=== PATIENT | female | born 1965 ===

== ENCOUNTER 2023-08-23 17:45 | Emergency (ER) | payer BC ==
[~2023-08-23] VITALS: Ht 170.2 cm; Wt 104.5 kg
[2023-08-23 18:56] LABS: COLLECTION METHOD CLEAN CATCH
[2023-08-23 19:00] LABS: BASO # 0.1 K/mm3 (0.0-0.2); EOS # 0.3 K/mm3 (0.0-0.7); EOS % 4.7 % (0.0-4.0); GRAN # 3.1 K/mm3 (1.4-6.5); GRAN % 51.5 % (42.2-75.2); HEMOGLOBIN 10.4 g/dl (12.5-16.0); LYMPH % 33.6 % (20.0-51.0); MEAN CELL VOLUME 89 fl (80.0-100.0); MEAN CORPUSCULAR HEMOGLOBIN 30 pg (27-31); MEAN CORPUSCULAR HGB CONC 33 g/dl (33.0-37.0); MEAN PLATELET VOLUME 10.9 fl (7.4-10.4); MONO # 0.5 K/mm3 (0.1-0.6); MONO % 8.7 % (1.7-9.3); PLATELET COUNT 269 K/mm3 (130-400); RED BLOOD COUNT 3.49 M/mm3 (4.10-5.30); REDCELL DISTRIBUTION WIDTH-CV 12.8 % (11.5-14.5)
[2023-08-23 19:01] LABS: HEMATOCRIT 31.2 % (37.0-47.0)
[2023-08-23 19:09] LABS: URINE APPEARANCE Hazy (CLEAR/HAZY); URINE COLOR Straw (YELLOW); URINE GLUCOSE 1+ (NEGATIVE); URINE PROTEIN(semi-quant) 3+ (NEGATIVE)
[2023-08-23 19:10] LABS: AMORPHOUS CRYSTAL Present (NOT PRESENT); SQUAMOUS EPITHELIAL None Seen /hpf (0-10); URINE BACTERIA Occasional /hpf (NONE SEEN); URINE BLOOD 2+ (NEGATIVE); URINE KETONE Negative (NEGATIVE); URINE NITRATE Negative (NEGATIVE); URINE RBC 0-2 /hpf (0-2); URINE UROBILINOGEN 0.2 E.U/dL (0.2-1.0); URINE WBC None Seen /hpf (0-2)
[2023-08-23 19:14] LABS: ALANINE AMINOTRANSFERASE 18 U/L (0-55); ALBUMIN 2.5 gm/dL (3.5-5.0); ALKALINE PHOSPHATASE 62 U/L (40-150); ANION GAP 13 mmol/L (7-16); AST,SGOT 18 U/L (5-34); BILIRUBIN,TOTAL 0.2 mg/dL (0.2-1.2); BLOOD UREA NITROGEN 38 mg/dL (10-20); CALCIUM 8.6 mg/dL (8.4-10.2); CARBON DIOXIDE 20 mmol/L (22-29); CHLORIDE 103 mmol/L (98-107); CREATININE, serum 2.43 mg/dL (0.57-1.11); GLUCOSE 256 mg/dL (70-99); POTASSIUM 3.8 mmol/L (3.5-4.5); SODIUM 136 mmol/L (136-145); TOTAL PROTEIN 6.7 gm/dL (6.2-8.1)
[2023-08-23 19:20] LABS: TROPONIN-I < 0.010 ng/mL (0.00-0.033)
[2023-08-23 20:07] LABS: INR 3.3 (0.8-3.0); PROTHROMBIN TIME 35.5 SECONDS (9.7-12.8)
[2023-08-23 22:13] VITALS: BP 176/92; PULSE 96; TEMP 97.2
== END 2023-08-23 22:13 | disposition home or self-care (01) ==
LOC: COL.ER 17:45
PROVIDERS: Nurse Practitioner
DX: K80.20 Calculus of gallbladder without cholecystitis without obstruction (principal); Z86.718 Personal history of other venous thrombosis and embolism; Z91.148 Patient's other noncompliance with medication regimen for other reason; Z91.040 Latex allergy status; Z79.01 Long term (current) use of anticoagulants

== ENCOUNTER 2024-02-17 13:04 | Emergency (ER) | payer OTHER ==
[~2024-02-17] VITALS: Ht 170.2 cm; Wt 81.8 kg
[~2024-02-17 13:04] MED LIST: CEFTIN500 MG PO; COREG 25MG25 MG/TAB PO; COUMADIN 5MG5 MG/TAB PO; CRESTOR20 MG PO; INSULIN LI100 UNIT/2 SQ; KEPPRA1000 MG PO; LANTUS SOLOS100 U/ML SQ; LYRICA 100MG C100 M1 PO; NORVASC 10MG10 MG PO; OZEMPIC1 MG/0.71 SQ; REGLAN 5MG T5 MG/TAB PO; VITAMIN D31000 I1 PO; ZOFRAN 4MG T4 MG/TAB PO; ZOLOFT 100MG100 MG PO
[2024-02-17 13:07] VITALS: TEMP 97.9
[2024-02-17] MEDS ORDERED: LR 1,000 ML IV ONE (13:30)
[2024-02-17 13:32] LABS: BASO # 0.1 K/mm3 (0.0-0.2); BASO % 0.6 % (0.0-2.0); EOS # 0.2 K/mm3 (0.0-0.7); EOS % 2.5 % (0.0-4.0); GRAN # 4.3 K/mm3 (1.4-6.5); GRAN % 52.4 % (42.2-75.2); LYMPH # 2.8 K/mm3 (1.2-3.4); LYMPH % 33.3 % (20.0-51.0); MEAN CELL VOLUME 93 fl (80.0-100.0); MEAN CORPUSCULAR HGB CONC 32 g/dl (33.0-37.0); MEAN PLATELET VOLUME 10.9 fl (7.4-10.4); MONO # 0.9 K/mm3 (0.1-0.6); MONO % 10.7 % (1.7-9.3); PLATELET COUNT 224 K/mm3 (130-400); RED BLOOD COUNT 3.25 M/mm3 (4.10-5.30); REDCELL DISTRIBUTION WIDTH-CV 13.1 % (11.5-14.5)
[2024-02-17 13:40] LABS: HEMATOCRIT 30.1 % (37.0-47.0); HEMOGLOBIN 9.7 g/dl (12.5-16.0); MEAN CORPUSCULAR HEMOGLOBIN 30 pg (27-31)
[2024-02-17 13:42] LABS: ALANINE AMINOTRANSFERASE 24 U/L (0-55); ALBUMIN 2.4 g/dL (3.5-5.0); ALKALINE PHOSPHATASE 38 U/L (40-150); ANION GAP 12 mmol/L (7-16); AST,SGOT 31 U/L (5-34); BILIRUBIN,TOTAL 0.4 mg/dL (0.2-1.2); BLOOD UREA NITROGEN 27 mg/dL (10-20); CALCIUM 8.8 mg/dL (8.4-10.2); CHLORIDE 111 mEq/L (98-107); CREATININE, serum 1.93 mg/dL (0.57-1.11); GLUCOSE 93 mg/dL (70-99); POTASSIUM 3.5 mEq/L (3.5-4.5); SODIUM 144 mEq/L (136-145); TOTAL PROTEIN 5.5 g/dl (6.2-8.1)
[2024-02-17 13:52] LABS: COLLECTION METHOD CLEAN CATCH
[2024-02-17 14:05] LABS: URINE APPEARANCE CLEAR (CLEAR/HAZY); URINE BLOOD NEGATIVE (NEGATIVE); URINE COLOR YELLOW (YELLOW); URINE GLUCOSE 2+ (NEGATIVE); URINE KETONE NEGATIVE (NEGATIVE); URINE NITRATE NEGATIVE (NEGATIVE); URINE PROTEIN(semi-quant) 4+ (NEGATIVE); URINE UROBILINOGEN 0.2 E.U/dL (0.2-1.0)
[2024-02-17 14:06] LABS: TROPONIN-I < 0.010 ng/mL (0.00-0.033)
[2024-02-17 14:40] LABS: AMORPHOUS CRYSTAL PRESENT (NOT PRESENT); SQUAMOUS EPITHELIAL 0-2 /hpf (0-10); URINE RBC 0-2 /hpf (0-2)
[2024-02-17] MEDS ORDERED: cefTRIAXone 1 G in Water For Injection,Sterile 10 ML IV ONE (15:15)
[2024-02-17 15:55] LABS: CLOSTRIDIUM DIFF A/B NEG
[2024-02-17] MEDS ORDERED: NS 1,000 ML IV ONE (16:30)
[2024-02-17 17:54] LABS: CREATININE, serum 1.51 mg/dL (0.57-1.11)
[2024-02-17] MEDS ORDERED: MACROBID 1100 MG/CAP PO (18:08)
[2024-02-17 18:20] VITALS: BP 164/86; PULSE 82
== END 2024-02-17 18:44 | disposition home or self-care (01) ==
LOC: COL.ER 13:04
PROVIDERS: Physician Assistant
DX: R19.7 Diarrhea, unspecified (principal); N17.9 Acute kidney failure, unspecified; N39.0 Urinary tract infection, site not specified; Z79.01 Long term (current) use of anticoagulants; Z86.718 Personal history of other venous thrombosis and embolism; Z88.1 Allergy status to other antibiotic agents; Z91.040 Latex allergy status
CPT/HCPCS: J0696; J7030; J7120

== ENCOUNTER 2024-06-08 12:22 | Inpatient (IN) | payer OTHER ==
[~2024-06-08] VITALS: Ht 170.2 cm; Wt 94.6 kg
[~2024-06-08 12:22] MED LIST changes: -INSULIN LI100 UNIT/2 SQ; +MACROBID 1100 MG/CAP PO; +NOVLOG SQ; -OZEMPIC1 MG/0.71 SQ; +OZEMPIC2 MG/0.75 SQ
[2024-06-08] MEDS ORDERED: NS 1,000 ML IV ONE ×2 (12:45→14:00)
[2024-06-08 13:16] LABS: COLLECTION METHOD CATHETER
[2024-06-08 13:21] LABS: BASO % 0.3 % (0.0-2.0); EOS # 0.3 K/mm3 (0.0-0.7); EOS % 1.9 % (0.0-4.0); GRAN # 9.7 K/mm3 (1.4-6.5); GRAN % 74.8 % (42.2-75.2); LYMPH # 2.1 K/mm3 (1.2-3.4); LYMPH % 15.8 % (20.0-51.0); MEAN CELL VOLUME 91 fl (80.0-100.0); MEAN CORPUSCULAR HGB CONC 33 g/dl (33.0-37.0); MEAN PLATELET VOLUME 11.2 fl (7.4-10.4); MONO # 0.9 K/mm3 (0.1-0.6); MONO % 6.6 % (1.7-9.3); PLATELET COUNT 196 K/mm3 (130-400); RED BLOOD COUNT 2.81 M/mm3 (4.10-5.30); REDCELL DISTRIBUTION WIDTH-CV 12.3 % (11.5-14.5)
[2024-06-08 13:22] LABS: HEMATOCRIT 25.5 % (37.0-47.0); HEMOGLOBIN 8.3 g/dl (12.5-16.0); MEAN CORPUSCULAR HEMOGLOBIN 30 pg (27-31)
[2024-06-08 13:28] LABS: URINE APPEARANCE CLOUDY (CLEAR/HAZY); URINE BLOOD 2+ (NEGATIVE); URINE COLOR YELLOW (YELLOW); URINE GLUCOSE 2+ (NEGATIVE); URINE KETONE TRACE (NEGATIVE); URINE NITRATE NEGATIVE (NEGATIVE); URINE PROTEIN(semi-quant) 4+ (NEGATIVE); URINE UROBILINOGEN 0.2 E.U/dL (0.2-1.0)
[2024-06-08 13:38] LABS: ALBUMIN 2.7 g/dL (3.5-5.0); BILIRUBIN,TOTAL 0.4 mg/dL (0.2-1.2); CALCIUM 8.9 mg/dL (8.4-10.2); CREATININE, serum 2.88 mg/dL (0.57-1.11); POTASSIUM 4.9 mEq/L (3.5-4.5); TOTAL PROTEIN 6.2 g/dl (6.2-8.1)
[2024-06-08 13:43] LABS: INR 1.5 (0.8-3.0); PROTHROMBIN TIME 16.1 SECONDS (9.7-12.8)
[2024-06-08 13:54] LABS: URINE BACTERIA MODERATE /hpf (NONE SEEN); URINE RBC 0-2 /hpf (0-2)
[2024-06-08 14:00] VITALS: BP_SYST 143
[2024-06-08] MEDS ORDERED: NS 500 ML IV ONE (14:15)
[2024-06-08] MEDS ORDERED: Acetaminophen 500 MG TAB PO PRN (15:15)
[2024-06-08] MEDS ORDERED: Polyethylene Glycol 3350 17 GM PDS PO PRN (15:15)
[2024-06-08] MEDS ORDERED: Ondansetron 4 MG/2 ML VIAL IV PRN (15:15)
--- NOTE | 2024-06-08 15:26 | NUR ---
Patient arrived to the medical unit by bed, room 353. Alert and oriented x 4, states pain in the tailbone 07/01. In addition she has chronic pain and takes norco for it. VSS with HTN 143/77. Assessment intake completed.
[2024-06-08] MEDS ORDERED: cefTRIAXone 1 G in Water For Injection,Sterile 10 ML IV SCH (15:30)
[2024-06-08] MEDS ORDERED: Dextrose (Glucose) 15 GM (4 x 3.75 GM) Chewable TABLET PACK PO PRN (15:45)
[2024-06-08] MEDS ORDERED: Dextrose 50% Water 25 GM/50 ML SYRINGE IV PRN (15:45)
[2024-06-08] MEDS ORDERED: Glucagon 1 MG VIAL IM PRN (15:45)
[2024-06-08] MEDS ORDERED: ELIQUIS 2.5 PO (15:52)
[2024-06-08 16:00] VITALS: BP 143/77; PULSE 84; TEMP 98.2
[2024-06-08] MEDS ORDERED: Heparin 5,000 UNITS/ML 1 ML VIAL SQ SCH (16:00)
[2024-06-08 16:43] VITALS: BP_SYST 143
[2024-06-08] MEDS ORDERED: Insulin Lispro (HumaLOG) SQ SCH (17:00)
[2024-06-08] MEDS ORDERED: Carvedilol 25 MG TAB PO SCH (17:00)
--- NOTE | 2024-06-08 17:08 | NUR ---
Pt asks for her left foot to be assessed since she has neuropathy and she was not aware that she hit it in one of her falls. Left foot with sveral and dif stages bruises. Pt asks for an X Ray. Call placed to Dr. Vela to report pt needs. States she will check the patient tomorrow on her rounds. Pt aware.
--- NOTE | 2024-06-08 19:28 | NUR ---
Patient resting in bed. Rates pain 9/10, prn pain meds given. Needs met. Assessment complete. IV in left forearm flushes easily without complications. Call light and personal items in reach. Bed in low position and bed alarm on.
[2024-06-08 19:30] VITALS: BP 128/83; PULSE 81; TEMP 97.9
[2024-06-08 20:17] VITALS: BP_SYST 128
[2024-06-08] MEDS ORDERED: Sertraline 100 MG TAB PO SCH (21:00)
[2024-06-08] MEDS ORDERED: levETIRAcetam 500 MG TAB PO SCH (21:00)
[2024-06-08] MEDS ORDERED: Pregabalin 50 MG CAP PO SCH (21:00)
[2024-06-08] MEDS ORDERED: Atorvastatin 40 MG TAB PO SCH (21:00)
[2024-06-08] MEDS ORDERED: Rosuvastatin 20 MG **** subs to Atorvastatin 40 MG PO SCH (21:00)
[2024-06-08] MEDS ORDERED: Apixaban 2.5 MG TABLET PO SCH (21:00)
[2024-06-08 23:21] VITALS: BP 129/79; PULSE 82; TEMP 98.4
[2024-06-09] VITALS (12 sets, daily range): BP systolic 110–136; BP diastolic 70–82; PULSE 76–85; TEMP 98–98.7
--- NOTE | 2024-06-09 02:50 | NUR ---
Patient arrived to the unit at this time with personal belongins. VS obtained. Patient denies any pain or needs at this time. Assessment and med rec complete. IV in right AC flushes easliy without complications however patient states it is really bothering her with the location. Offered to start a new IV site, patient agreeable. 20G started in right forearm, right AC discontinued. Oriented patient to room, call light, bathroom, bed, and phone. Call light and personal items in reach. Bed in low position.
--- NOTE | 2024-06-09 06:22 | NUR ---
Patient resting in bed with eyes closed. Respirations even and unlabored. No signs of pain or needs at this time. No changes over night. Call light and persoanl items in reach. Bed in low position and bed alarm on.
[2024-06-09 07:02] LABS: BASO % 0.4 % (0.0-2.0); EOS # 0.3 K/mm3 (0.0-0.7); EOS % 4.1 % (0.0-4.0); GRAN # 4.1 K/mm3 (1.4-6.5); GRAN % 56.2 % (42.2-75.2); LYMPH # 2.2 K/mm3 (1.2-3.4); MEAN CELL VOLUME 90 fl (80.0-100.0); MEAN CORPUSCULAR HGB CONC 33 g/dl (33.0-37.0); MEAN PLATELET VOLUME 11.1 fl (7.4-10.4); MONO # 0.6 K/mm3 (0.1-0.6); MONO % 8.7 % (1.7-9.3); PLATELET COUNT 166 K/mm3 (130-400); RED BLOOD COUNT 2.88 M/mm3 (4.10-5.30); REDCELL DISTRIBUTION WIDTH-CV 12.2 % (11.5-14.5)
[2024-06-09 07:06] LABS: HEMATOCRIT 25.8 % (37.0-47.0); HEMOGLOBIN 8.6 g/dl (12.5-16.0); MEAN CORPUSCULAR HEMOGLOBIN 30 pg (27-31)
--- NOTE | 2024-06-09 07:16 | NUR ---
Pt doing okay this morning. Assisted her to the restroom. She was standby assist with a walker. Pt was slow getting up, but did okay otherwise. PCT with pt
[2024-06-09 07:17] LABS: CALCIUM 8.6 mg/dL (8.4-10.2); CREATININE, serum 1.95 mg/dL (0.57-1.11); POTASSIUM 4.3 mEq/L (3.5-4.5)
--- NOTE | 2024-06-09 08:55 | NUR ---
bridge ironworker helper met with pt to discuss discharge planning. She reports to live with her , Maryana [phone] in [place]. She sees KIARRA Islas for PCP needs and obtains medications from [facility] with no difficulties. She confirmed her insurance as [employer]. She reports to be independent with ADLS and uses a rolator for DME. She reports to have had falls and concerns for mobility. SW advised PT/OT will come work with her and assess for any needs. Pt does not have a DPOA-HC, but was agreeable to her being NOK. PT/OT pending Discharge Plan: tbd, likely home
[2024-06-09] MEDS ORDERED: amLODIPine 10 MG TAB PO SCH (09:00)
[2024-06-09] MEDS ORDERED: Cyanocobalamin (Vit B-12) 1,000 MCG TAB PO SCH (10:00)
[2024-06-09] MEDS ORDERED: Folic Acid 1 MG TAB PO SCH (10:00)
[2024-06-09] MEDS ORDERED: Ferrous Sulfate 325 MG TAB PO SCH (12:00)
--- NOTE | 2024-06-09 14:40 | NUR ---
Pt had xray of her left ankle which shows possible fractures. Hospitalist aware. Pt advised to be non weight bearing on her left leg at this time until further orders are received. Pt verbalizes understanding. Pts at bedside at this time, all questions answered. Report given to CHASE Rivera
--- NOTE | 2024-06-09 16:17 | NUR ---
ORTHO REQUESTED TALL CAM BOOT ONTO PT'S LEFT LOWER EXTREMITY, REPORTS PT SHOULD WEAR WITH ALL ACTIVITY AND SLEEP, BUT CAN REMOVE TO ICE, ELEVATE, AND SHOWER. PT WILL BE ON RESTRICTION OF TOUCHDOWN WEIGHT BEARING WITH WALKER ET BOOT ON. FAMILY ASKED ABOUT RESTARTING PT'S HOME NORCO, ORTHO WILL REFER TO HOSPITALIST FOR THAT DECISION.
[2024-06-09] MEDS ORDERED: oxyCODONE 5 MG TAB PO PRN (17:45)
[2024-06-10 00:20] VITALS: BP_SYST 135; BP_SYST 158
[2024-06-10 03:59] VITALS: BP 158/81; PULSE 81; TEMP 98.4
[2024-06-10 04:20] VITALS: BP_SYST 158
[2024-06-10 07:16] VITALS: BP 145/80; PULSE 82; TEMP 98.4
[2024-06-10 07:26] LABS: BASO # 0.1 K/mm3 (0.0-0.2); BASO % 0.8 % (0.0-2.0); EOS # 0.4 K/mm3 (0.0-0.7); EOS % 6.3 % (0.0-4.0); GRAN # 3.1 K/mm3 (1.4-6.5); GRAN % 48.6 % (42.2-75.2); LYMPH # 2.3 K/mm3 (1.2-3.4); LYMPH % 36.2 % (20.0-51.0); MEAN CELL VOLUME 90 fl (80.0-100.0); MEAN CORPUSCULAR HGB CONC 34 g/dl (33.0-37.0); MEAN PLATELET VOLUME 10.9 fl (7.4-10.4); MONO # 0.5 K/mm3 (0.1-0.6); MONO % 7.8 % (1.7-9.3); PLATELET COUNT 188 K/mm3 (130-400); RED BLOOD COUNT 2.86 M/mm3 (4.10-5.30); REDCELL DISTRIBUTION WIDTH-CV 12.2 % (11.5-14.5)
[2024-06-10 07:33] LABS: HEMATOCRIT 25.7 % (37.0-47.0); HEMOGLOBIN 8.6 g/dl (12.5-16.0); MEAN CORPUSCULAR HEMOGLOBIN 30 pg (27-31)
[2024-06-10 07:42] LABS: CALCIUM 8.5 mg/dL (8.4-10.2); CREATININE, serum 1.73 mg/dL (0.57-1.11); POTASSIUM 4.2 mEq/L (3.5-4.5)
[2024-06-10 09:00] VITALS: BP_SYST 145
[2024-06-10] MEDS ORDERED: LANTUS100 U/ML SQ ×2 (09:26→09:27)
--- NOTE | 2024-06-10 09:59 | NUR ---
PATIENT A&O X4. VSS. NO C/O PAIN OR N/V. PATIENT HAS BOOT ON LLE THAT IS TO BE WORN AT ALL TIME. PATIENT IS ASSIST X1 WITH WALKER AND GAIT BELT. SHIFT ASSESSMENT COMPLETE AND MORNING MEDICATIONS ADMINISTERED. PLANNING TO DISCHARGE TODAY. NO FURTHER NEEDS AT THIS TIME. CALL LIGHT WITHIN REACH.
--- NOTE | 2024-06-10 10:43 | NUR ---
Initial visit; Patient thanked [employer] Picker for looking in on her and offering prayer. Patient said she had broken her foot in three places and doesn't remember how it happened. [facility] Picker understands Shirin is in the hospital for tests and wished patient success and healing. [facility]icker will follow-up tomorrow with prayer.
[2024-06-10 11:17] VITALS: BP 147/83; PULSE 80; TEMP 98.1
[2024-06-10] MEDS ORDERED: FOLIC ACID 11 MG/TA1 PO (11:32)
[2024-06-10] MEDS ORDERED: FERROUS SU325 MG/TAB PO (11:32)
[2024-06-10] MEDS ORDERED: B-12 500 MCG PO (11:33)
[2024-06-10] MEDS ORDERED: OMNICEF 300MG300 MG PO (11:34)
--- NOTE | 2024-06-10 12:15 | NUR ---
Assistant Purchasing Manager met with patient to follow up on discharge planning. Patient stated she is being discharged home this afternoon. SW discussed Home Health with patient who stated she had HH recently and stopped it because she is moving out of state. Patient declined having SW set her up at this time. Discharge Plan; Home
--- NOTE | 2024-06-10 12:30 | NUR ---
DISCHARGE INSTRUCTIONS GONE OVER WITH PATIENT. PATIENT VERBALIZES UNDERSTANDING OF INSTRUCTIONS. IV IN LEFT FOREARM DISCONTINUED. CATHETER TIP INTACT. I ESCORTED THE PATIENT TO POV BY WHEELCHAIR AND HELP PATIENT INTO THE VEHICLE. PERSONAL BELONGING WENT WITH PATIENT.
--- NOTE | 2024-06-10 12:30 | NUR ---
PATIENT TAKEN HOME BY IN POV.
== END 2024-06-10 12:35 | disposition home or self-care (01) | DRG 872 ==
LOC: COL.ER 12:22 → MEDICAL 14:24
PROVIDERS: Personal Emergency Response Attendant; ADMIT Internal Medicine
DX: A41.9 Sepsis, unspecified organism (principal); N17.9 Acute kidney failure, unspecified; N39.0 Urinary tract infection, site not specified; M84.464A Pathological fracture, left fibula, initial encounter for fracture; M84.472A Pathological fracture, left ankle, initial encounter for fracture; M84.475A Pathological fracture, left foot, initial encounter for fracture; I95.9 Hypotension, unspecified; E11.65 Type 2 diabetes mellitus with hyperglycemia; D64.9 Anemia, unspecified; E87.5 Hyperkalemia; R65.20 Severe sepsis without septic shock; R29.6 Repeated falls; E11.22 Type 2 diabetes mellitus with diabetic chronic kidney disease; I12.9 Hypertensive chronic kidney disease with stage 1 through stage 4 chronic kidney disease, or unspecified chronic kidney disease; N18.9 Chronic kidney disease, unspecified; G40.909 Epilepsy, unspecified, not intractable, without status epilepticus; Z86.718 Personal history of other venous thrombosis and embolism; Z90.49 Acquired absence of other specified parts of digestive tract; Z88.1 Allergy status to other antibiotic agents; Z88.5 Allergy status to narcotic agent; Z88.8 Allergy status to other drugs, medicaments and biological substances; Z79.4 Long term (current) use of insulin; Z79.899 Other long term (current) drug therapy; Z79.01 Long term (current) use of anticoagulants; Z23 Encounter for immunization
CPT/HCPCS: J0696; J1815; J7030; J7040

== ENCOUNTER 2024-07-10 14:40 | Observation (INO) | payer SELFPAY ==
[~2024-07-10] VITALS: Ht 170.2 cm; Wt 93.1 kg
[~2024-07-10 14:40] MED LIST changes: +B-12 500 MCG PO; +ELIQUIS 2.5 PO; +FERROUS SU325 MG/TAB PO; +FOLIC ACID 11 MG/TA1 PO; +LANTUS100 U/ML SQ; +OMNICEF 300MG300 MG PO
[2024-07-10] MEDS ORDERED: NS 1,000 ML IV ONE ×2 (15:03→15:15)
[2024-07-10 15:34] LABS: BASO % 0.4 % (0.0-2.0); EOS # 0.3 K/mm3 (0.0-0.7); EOS % 3.8 % (0.0-4.0); GRAN # 3.8 K/mm3 (1.4-6.5); GRAN % 54.2 % (42.2-75.2); HEMOGLOBIN 10.3 g/dl (12.5-16.0); LYMPH # 2.3 K/mm3 (1.2-3.4); LYMPH % 32.7 % (20.0-51.0); MEAN CELL VOLUME 93 fl (80.0-100.0); MEAN CORPUSCULAR HEMOGLOBIN 30 pg (27-31); MEAN CORPUSCULAR HGB CONC 33 g/dl (33.0-37.0); MEAN PLATELET VOLUME 10.9 fl (7.4-10.4); MONO # 0.6 K/mm3 (0.1-0.6); MONO % 8.5 % (1.7-9.3); PLATELET COUNT 177 K/mm3 (130-400); RED BLOOD COUNT 3.39 M/mm3 (4.10-5.30); REDCELL DISTRIBUTION WIDTH-CV 12.5 % (11.5-14.5)
[2024-07-10 15:34] LABS: COLLECTION METHOD CATHETER
[2024-07-10 15:40] LABS: HEMATOCRIT 31.5 % (37.0-47.0)
[2024-07-10 15:45] LABS: URINE APPEARANCE TURBID (CLEAR/HAZY); URINE BLOOD 1+ (NEGATIVE); URINE COLOR YELLOW (YELLOW); URINE GLUCOSE TRACE (NEGATIVE); URINE KETONE TRACE (NEGATIVE); URINE NITRATE NEGATIVE (NEGATIVE); URINE PROTEIN(semi-quant) 3+ (NEGATIVE); URINE UROBILINOGEN 0.2 E.U/dL (0.2-1.0)
[2024-07-10 15:46] LABS: ALBUMIN 2.9 g/dL (3.5-5.0); BILIRUBIN,TOTAL 0.3 mg/dL (0.2-1.2); CALCIUM 8.7 mg/dL (8.4-10.2); CREATININE, serum 2.2 mg/dL (0.57-1.11); POTASSIUM 4.6 mEq/L (3.5-4.5); TOTAL PROTEIN 6.2 g/dl (6.2-8.1)
[2024-07-10 17:17] LABS: URINE RBC 0-2 /hpf (0-2)
[2024-07-10 17:18] LABS: AMORPHOUS CRYSTAL PRESENT (NOT PRESENT); URINE BACTERIA MODERATE /hpf (NONE SEEN)
[2024-07-10] MEDS ORDERED: COUMADIN 6MG6 MG/TAB PO (19:43)
[2024-07-10] MEDS ORDERED: NORCO 325 MG-101 TAB PO (19:44)
[2024-07-10] MEDS ORDERED: SKELAXIN 800MG800 MG PO (19:46)
[2024-07-10] MEDS ORDERED: HUMALOG100 U/ML SQ (19:50)
[2024-07-10] MEDS ORDERED: hydrALAZINE 20 MG/ML 1 ML VIAL IV ONE (20:00)
--- NOTE | 2024-07-10 22:24 | NUR ---
REPORT RECIEVED FROM IDALIA IN THE ER AT THIS TIME.
--- NOTE | 2024-07-10 22:32 | NUR ---
FEMALE PATIENT ARRIVED TO ROOM #346 VIA STRETCHER FROM ER AT THIS TIME. PATIENT MOVED OVER TO BED USING SLIDE BOARD. PATIENT TOLERATED WELL. PATIENT C/O PAIN TO LEFT RIBS. INT TO LEFT FOREARM INTACT WITH NO COMPLICATIONS NOTED. PATIENT CHANGED INTO YELLOW GOWN AND YELLOW SOCKS. FALL ARMBAND APPLIED. PATIENT HELPED TO REPOSITION FOR COMFORT. INITAL INTAKE AND INITAL ASSESSMENT COMPLETED AT THIS TIME. PATIENT VERBALIZED UNDERSTANDING OF CALL LIGHTS AND BED CONTROLS. PATIENT REQUESTED WARM BLANKET. PATIENT VERBALIZED PAIN MEDICATION, WARM BLANKET, AND PITCHER OF ICE WATER WOULD BE GIVEN. BED IN LOW POSITION WITH WHEELS LOCKED WITH RAILS UP X3 AND CALL LIGHT WITHIN REACH. BED ALARM ON.
[2024-07-10 22:45] VITALS: BP_SYST 165
[2024-07-10] MEDS ORDERED: Acetaminophen 500 MG TAB PO PRN (22:45)
[2024-07-10] MEDS ORDERED: Ondansetron 4 MG/2 ML VIAL IV PRN (22:45)
[2024-07-10 22:47] VITALS: BP 165/80; PULSE 100; TEMP 98.2
[2024-07-10] MEDS ORDERED: Morphine 4 MG/ML VIAL IV PRN (23:00)
[2024-07-10 23:12] LABS: INR 1.2 (0.8-3.0); PROTHROMBIN TIME 13.5 SECONDS (9.7-12.8)
--- NOTE | 2024-07-10 23:35 | NUR ---
HOSPITALIST Fredy PAULINO TALKED TO AT NURSING STATION ABOUT PATIYESSICAN BEING A DIABETIC. VERBAL ORDER RECIEVED FOR ADA DIET AND ACCU CHECKS AC AND HS.
[2024-07-11] VITALS (15 sets, daily range): BP systolic 105–179; BP diastolic 67–91; PULSE 58–98; TEMP 98–99
[2024-07-11] MEDS ORDERED: Dextrose (Glucose) 15 GM (4 x 3.75 GM) Chewable TABLET PACK PO PRN (00:45)
[2024-07-11] MEDS ORDERED: Dextrose 50% Water 25 GM/50 ML SYRINGE IV PRN (00:45)
[2024-07-11] MEDS ORDERED: Glucagon 1 MG VIAL IM PRN (00:45)
[2024-07-11 07:37] LABS: BASO % 0.6 % (0.0-2.0); EOS # 0.3 K/mm3 (0.0-0.7); EOS % 4.5 % (0.0-4.0); GRAN # 2.9 K/mm3 (1.4-6.5); GRAN % 43.6 % (42.2-75.2); HEMOGLOBIN 10.3 g/dl (12.5-16.0); LYMPH # 2.7 K/mm3 (1.2-3.4); LYMPH % 40.7 % (20.0-51.0); MEAN CELL VOLUME 91 fl (80.0-100.0); MEAN CORPUSCULAR HEMOGLOBIN 30 pg (27-31); MEAN CORPUSCULAR HGB CONC 33 g/dl (33.0-37.0); MEAN PLATELET VOLUME 10.3 fl (7.4-10.4); MONO # 0.7 K/mm3 (0.1-0.6); MONO % 10.1 % (1.7-9.3); PLATELET COUNT 186 K/mm3 (130-400); RED BLOOD COUNT 3.47 M/mm3 (4.10-5.30); REDCELL DISTRIBUTION WIDTH-CV 12.5 % (11.5-14.5)
[2024-07-11 07:39] LABS: HEMATOCRIT 31.4 % (37.0-47.0)
[2024-07-11 07:48] LABS: CALCIUM 8.9 mg/dL (8.4-10.2); CREATININE, serum 1.84 mg/dL (0.57-1.11); POTASSIUM 4.4 mEq/L (3.5-4.5)
[2024-07-11] MEDS ORDERED: Carvedilol 25 MG TAB PO SCH (08:00)
[2024-07-11] MEDS ORDERED: Insulin Lispro (HumaLOG) SQ SCH (08:00)
--- NOTE | 2024-07-11 08:48 | NUR ---
Pt doing okay this morning. She stated that she has been using a wheelchair for the last several months at home due to decreased activity and increased weakness. Pt reports falling a lot lately when trying to walk. Discussed pain with Dr Garcia, new orders received. Discussed these with pt. Pt denies any other needs. She did tolerate breakfast with no complaints
[2024-07-11] MEDS ORDERED: Pregabalin 50 MG CAP PO SCH (09:00)
[2024-07-11] MEDS ORDERED: Famotidine 20 MG TAB PO SCH (09:00)
[2024-07-11] MEDS ORDERED: levETIRAcetam 500 MG TAB PO SCH (09:00)
[2024-07-11] MEDS ORDERED: Lidocaine 4% Topical Patch TP SCH (09:00)
[2024-07-11] MEDS ORDERED: Insulin Glargine-ygfn (Lantus) SQ SCH (09:00)
[2024-07-11] MEDS ORDERED: Sertraline 100 MG TAB PO SCH (09:00)
[2024-07-11] MEDS ORDERED: amLODIPine 10 MG TAB PO SCH (09:00)
[2024-07-11] MEDS ORDERED: Gadoterate 20 ML VIAL IV ONE (11:58)
[2024-07-11] MEDS ORDERED: Ferrous Sulfate 325 MG TAB PO SCH (12:00)
--- NOTE | 2024-07-11 12:21 | NUR ---
Pt arrived back from MRI. Pt requested to get her BP taken sitting up. BP 105/67 at this time
--- NOTE | 2024-07-11 14:00 | NUR ---
RT notified of order for IS
--- NOTE | 2024-07-11 14:01 | NUR ---
automotive worker met with pt and , Maryana [phone] via phone to discuss discharge planning. Pt reports to live with her in [place]. She sees KIARRA Islas for PCP needs and obtains medications from [facility] with no difficulties. Pt confirmed to have no insurance. She is typically independent with ADLS and uses no DME. She does not have a DPOA-HC and is agreeable to her being NOK. Pt reports that she intends to move to [facility] with in a few weeks and they are pursuing a job. SW advised that PT/OT reccomend SNF, but unfortunately pt does not have benefits. Pt and requested further exercises to complete at home. Both parties request the incentive spirometer and reports asking multiple staff members. JACK informed CAHSE Dykes and Rosalinda Gray of pt requesting incentive spirometer. SW informed PT Bob that pt requests home exercises. SW informed financial advising team that pt is a self pay. Discharge Plan: home
--- NOTE | 2024-07-11 16:20 | NUR ---
Pt doing okay, doing better with activity. Pain to her left side with movement. PRN pain medication is helping per pt. Pt is currently resting with eyes closed, even non labored breathing
[2024-07-11] MEDS ORDERED: Atorvastatin 40 MG TAB PO SCH (21:00)
[2024-07-11] MEDS ORDERED: Rosuvastatin 20 MG **** subs to Atorvastatin 40 MG PO SCH (21:00)
[2024-07-12] VITALS (7 sets, daily range): BP systolic 148–163; BP diastolic 82–95; PULSE 82–84; TEMP 98.3–98.8
--- NOTE | 2024-07-12 03:06 | NUR ---
Shift assessment completed- see documentation. Pt is alert and oriented. She reports mild pain until she is ambulating to the bathroom. Pt requested PRN pain medication. Morris was administered as ordered with other PM medications. L heel is dry and has a crack. Pt reported that it was hurting. L heel placed in a carney boot. Lidocaine patch was removed. She denies other needs at this time. Call light left within reach and fall precautions in place.
[2024-07-12 06:58] LABS: BASO % 0.5 % (0.0-2.0); EOS # 0.3 K/mm3 (0.0-0.7); EOS % 4.4 % (0.0-4.0); GRAN # 2.9 K/mm3 (1.4-6.5); GRAN % 46.9 % (42.2-75.2); LYMPH # 2.3 K/mm3 (1.2-3.4); LYMPH % 37.7 % (20.0-51.0); MEAN CELL VOLUME 91 fl (80.0-100.0); MEAN CORPUSCULAR HGB CONC 33 g/dl (33.0-37.0); MEAN PLATELET VOLUME 10.7 fl (7.4-10.4); MONO # 0.6 K/mm3 (0.1-0.6); MONO % 10.2 % (1.7-9.3); PLATELET COUNT 178 K/mm3 (130-400); RED BLOOD COUNT 3.09 M/mm3 (4.10-5.30); REDCELL DISTRIBUTION WIDTH-CV 12.5 % (11.5-14.5)
[2024-07-12 06:59] LABS: HEMATOCRIT 28.1 % (37.0-47.0); HEMOGLOBIN 9.2 g/dl (12.5-16.0); MEAN CORPUSCULAR HEMOGLOBIN 30 pg (27-31)
[2024-07-12 07:27] LABS: CALCIUM 8.5 mg/dL (8.4-10.2); CREATININE, serum 1.58 mg/dL (0.57-1.11); POTASSIUM 4.3 mEq/L (3.5-4.5)
--- NOTE | 2024-07-12 08:00 | NUR ---
PATIENT IS A&O. NOTED ELEVATED B/P OF 163/95, SCHEDULED B/P MEDS GIVEN. NO C/O N/V. TOLERATING ADA DIET. AM BS IS 96, NO SSI REQUIRED. PATIENT REPORTS FREQUENT FALLS AT HOME. 1 ASSIST WITH WALKER, GAIT WEAK BUT STEADY. PATIENT ASSISTED TO BATHROOM. PT/OT CONSULTED. HEAD TO TOE ASSESSMENT COMPLETE. SEE SHIFT ASSESSMENT FOR SKIN ISSUES. LEFT FORARM IV TO INT. NO OTHER NEEDS AT THIS TIME. CALL LIGHT IN REACH.
[2024-07-12] MEDS ORDERED: Influenza Virus Vaccine, Trivalent '24-25 0.5 ML SYRINGE IM SCH (09:00)
[2024-07-12 10:39] LABS: INR 1.3 (0.8-3.0); PROTHROMBIN TIME 13.9 SECONDS (9.7-12.8)
--- NOTE | 2024-07-12 12:15 | NUR ---
AT BEDSIDE, SEE PROVIDER NOTES
--- NOTE | 2024-07-12 14:15 | NUR ---
PATIENT DISCHARGING HOME VIA WC TO PERSONAL VEHICLE WHERE HER IS WAITING. GAVE DISCHARGE INSTRUCTIONS AND ANSWERED QUESTIONS/CONCERNS. PATIENT AND HER ARE MOVING SOON TO [place] AND PLAN TO FOLLOW UP WITH A PCP THERE, SEE DISCHARGE ORDERS. DC'D IV AND COVERED SITE WITH [employer]. PATIENT IS DRESSED, PACKED AND DISCHARGED.
--- NOTE | 2024-07-12 14:18 | NUR ---
FLATWORK FINISHER HAND was notified from supervisor feed house that pt needed a walker to dc home with. FLATWORK FINISHER HAND met with pt and physician to sign the order. FLATWORK FINISHER HAND was about to fax the order when this pattern chart writer was notified that pt has walkers at home. FLATWORK FINISHER HAND spoke with pt and her spouse over the phone who stated that they have absolutely every walker that is in existence. FLATWORK FINISHER HAND shredded referral form. MARCO was called by Dr. Garcia about HH before she moves to [place] in three weeks. FLATWORK FINISHER HAND spoke with pt and pt declined.
[2024-07-14] MEDS ORDERED: Influenza Virus Vaccine, Trivalent '24-25 0.5 ML SYRINGE IM SCH (09:00)
== END 2024-07-12 14:15 | disposition home or self-care (01) ==
LOC: COL.ER 14:40 → SURG 21:28
PROVIDERS: Personal Emergency Response Attendant; Physician Assistant; ADMIT Internal Medicine
DX: E86.0 Dehydration (principal); N17.9 Acute kidney failure, unspecified; I12.9 Hypertensive chronic kidney disease with stage 1 through stage 4 chronic kidney disease, or unspecified chronic kidney disease; I25.3 Aneurysm of heart; N18.9 Chronic kidney disease, unspecified; R53.81 Other malaise; R53.1 Weakness; E11.22 Type 2 diabetes mellitus with diabetic chronic kidney disease; E78.5 Hyperlipidemia, unspecified; G40.909 Epilepsy, unspecified, not intractable, without status epilepticus; S92.415A Nondisplaced fracture of proximal phalanx of left great toe, initial encounter for closed fracture; S92.322A Displaced fracture of second metatarsal bone, left foot, initial encounter for closed fracture; S92.332A Displaced fracture of third metatarsal bone, left foot, initial encounter for closed fracture; S92.342A Displaced fracture of fourth metatarsal bone, left foot, initial encounter for closed fracture; S22.32XA Fracture of one rib, left side, initial encounter for closed fracture; S92.352A Displaced fracture of fifth metatarsal bone, left foot, initial encounter for closed fracture; W19.XXXA Unspecified fall, initial encounter; Z91.81 History of falling; Y93.9 Activity, unspecified; Y92.9 Unspecified place or not applicable; Z86.718 Personal history of other venous thrombosis and embolism; Z79.4 Long term (current) use of insulin; Z79.01 Long term (current) use of anticoagulants; Z79.899 Other long term (current) drug therapy
CPT/HCPCS: A9284; A9575; G0378; J0360; J1815; J2270; J7030

== ENCOUNTER 2024-07-16 11:05 | Inpatient (IN) | payer SELFPAY ==
[~2024-07-16] VITALS: Ht 170.2 cm; Wt 90.7 kg
[~2024-07-16 11:05] MED LIST changes: +COUMADIN 6MG6 MG/TAB PO; +HUMALOG100 U/ML SQ; +NORCO 325 MG-101 TAB PO; +SKELAXIN 800MG800 MG PO
[2024-07-16] MEDS ORDERED: NS 1,000 ML IV ONE (11:30)
[2024-07-16 11:46] LABS: COLLECTION METHOD CATHETER
[2024-07-16 11:58] LABS: INR 2.4 (0.8-3.0); PROTHROMBIN TIME 26.1 SECONDS (9.7-12.8)
[2024-07-16 12:01] LABS: PARTIAL THROMBOPLASTIN TIME 34.1 SECONDS (26.0-37.0); PH 5.5 (5.0-8.5); URINE APPEARANCE CLOUDY (CLEAR/HAZY); URINE BLOOD 1+ (NEGATIVE); URINE COLOR YELLOW (YELLOW); URINE GLUCOSE NEGATIVE (NEGATIVE); URINE KETONE NEGATIVE (NEGATIVE); URINE NITRATE NEGATIVE (NEGATIVE); URINE PROTEIN(semi-quant) 3+ (NEGATIVE); URINE UROBILINOGEN 0.2 E.U/dL (0.2-1.0)
[2024-07-16 12:04] LABS: BASO % 0.4 % (0.0-2.0); EOS # 0.3 K/mm3 (0.0-0.7); EOS % 2.9 % (0.0-4.0); GRAN # 6.3 K/mm3 (1.4-6.5); GRAN % 63.6 % (42.2-75.2); LYMPH # 2.5 K/mm3 (1.2-3.4); LYMPH % 24.7 % (20.0-51.0); MEAN CELL VOLUME 93 fl (80.0-100.0); MEAN CORPUSCULAR HGB CONC 32 g/dl (33.0-37.0); MEAN PLATELET VOLUME 10.4 fl (7.4-10.4); MONO # 0.8 K/mm3 (0.1-0.6); MONO % 7.9 % (1.7-9.3); PLATELET COUNT 243 K/mm3 (130-400); RED BLOOD COUNT 3.38 M/mm3 (4.10-5.30); REDCELL DISTRIBUTION WIDTH-CV 12.6 % (11.5-14.5)
[2024-07-16 12:05] LABS: HEMATOCRIT 31.4 % (37.0-47.0); HEMOGLOBIN 9.9 g/dl (12.5-16.0); MEAN CORPUSCULAR HEMOGLOBIN 29 pg (27-31)
[2024-07-16 12:15] LABS: ALBUMIN 2.6 g/dL (3.5-5.0); BILIRUBIN,TOTAL 0.2 mg/dL (0.2-1.2); C-REACTIVE PROTEIN 0.39 mg/dL (0.00-0.50); CREATININE, serum 2.12 mg/dL (0.57-1.11); POTASSIUM 4.5 mEq/L (3.5-4.5)
[2024-07-16 12:18] LABS: URINE WBC 20-50 /hpf (0-2)
[2024-07-16 12:19] LABS: URINE BACTERIA MODERATE /hpf (NONE SEEN)
[2024-07-16 12:25] LABS: TROPONIN-I 0.011 ng/mL (0.00-0.033)
[2024-07-16] MEDS ORDERED: cefTRIAXone 1 G in Water For Injection,Sterile 10 ML IV ONE (13:00)
[2024-07-16] MEDS ORDERED: LR 1,000 ML IV SCH (14:00)
[2024-07-16] MEDS ORDERED: Polyethylene Glycol 3350 17 GM PDS PO PRN (14:00)
[2024-07-16] MEDS ORDERED: Acetaminophen 325 MG TAB PO PRN (14:00)
[2024-07-16] MEDS ORDERED: Docusate Sodium 100 MG CAP PO PRN (14:00)
[2024-07-16] MEDS ORDERED: Ondansetron 4 MG/2 ML VIAL IV PRN (14:00)
[2024-07-16] MEDS ORDERED: HYDROcodone/Acetaminophen 10-325 MG TAB PO PRN (14:15)
--- NOTE | 2024-07-16 15:01 | NUR ---
Vancomycin Initial Dosing Pharmacy Note Ordering provider: Janay Soto MD Indication/duration: Enterococcus UTI, 7 days LABS: SCr 2.12, CrCl~30, GFR 27 Recommendation: Will start Vancomycin 1 gm IV q24h. Pharmacy will continue to closely monitor and check a trough on 07/19/24. Maintenance dose: 1 gram every 24 hours Trough goal: 10-15 ug/mL
[2024-07-16 15:23] VITALS: BP 185/94; PULSE 89; TEMP 98.4
--- NOTE | 2024-07-16 15:30 | NUR ---
Patient to room 356 from the ED. A&Ox4. VSS. IV CDI. Reports pain in lf foot and ribs. Nurse oriented the patient to location, room and call light. Patient positioned for comfort. Call light within reach
[2024-07-16] MEDS ORDERED: DESYREL DIVIDO150 M1 PO (15:39)
[2024-07-16] MEDS ORDERED: ALLERGY PO (15:39)
[2024-07-16] MEDS ORDERED: Heparin 5,000 UNITS/ML 1 ML VIAL SQ SCH (16:00)
[2024-07-16 17:00] VITALS: BP_SYST 185
[2024-07-16] MEDS ORDERED: Carvedilol 25 MG TAB PO SCH (17:00)
[2024-07-16] MEDS ORDERED: Insulin Lispro (HumaLOG) SQ SCH (17:00)
[2024-07-16 20:01] VITALS: BP 160/98; PULSE 89; TEMP 98.8
[2024-07-16 21:00] VITALS: BP_SYST 160
[2024-07-16] MEDS ORDERED: Famotidine 20 MG TAB PO SCH (21:00)
[2024-07-16] MEDS ORDERED: Warfarin 5 MG TAB PO SCH (21:00)
[2024-07-16] MEDS ORDERED: Pregabalin 50 MG CAP PO SCH (21:00)
[2024-07-16] MEDS ORDERED: Atorvastatin 40 MG TAB PO SCH (21:00)
[2024-07-16] MEDS ORDERED: Insulin Glargine-ygfn (Lantus) SQ SCH (21:00)
[2024-07-16 23:25] VITALS: BP 154/86; PULSE 91; TEMP 98.6
[2024-07-17] VITALS (12 sets, daily range): BP systolic 125–180; BP diastolic 71–102; PULSE 79–92; TEMP 98–98.9
--- NOTE | 2024-07-17 01:04 | NUR ---
patient lying in bed, alert and oriented x4. denies chest pain and shortness of breath. IV in LF is patent, site is CDI with LR running at 75 ml/hr. left heel wound/skin tear CDI, left foot in cam boot. small scattered abrasions on BLE and knees with bruising on back of legs. x1 with cam boot and gait belt to bedside commode and back in bed. fall precautions in place, call light within reach. will continue to monitor.
[2024-07-17 06:58] LABS: BASO % 0.4 % (0.0-2.0); EOS # 0.2 K/mm3 (0.0-0.7); EOS % 1.9 % (0.0-4.0); GRAN # 4.8 K/mm3 (1.4-6.5); GRAN % 62.1 % (42.2-75.2); LYMPH # 2.1 K/mm3 (1.2-3.4); LYMPH % 27.6 % (20.0-51.0); MEAN CELL VOLUME 95 fl (80.0-100.0); MEAN CORPUSCULAR HGB CONC 31 g/dl (33.0-37.0); MEAN PLATELET VOLUME 10.4 fl (7.4-10.4); MONO # 0.6 K/mm3 (0.1-0.6); MONO % 7.6 % (1.7-9.3); PLATELET COUNT 239 K/mm3 (130-400); RED BLOOD COUNT 3.16 M/mm3 (4.10-5.30); REDCELL DISTRIBUTION WIDTH-CV 12.4 % (11.5-14.5)
[2024-07-17 07:12] LABS: CALCIUM 8.8 mg/dL (8.4-10.2); CREATININE, serum 2.03 mg/dL (0.57-1.11); POTASSIUM 4.2 mEq/L (3.5-4.5)
[2024-07-17] MEDS ORDERED: Dextrose 50% Water 25 GM/50 ML SYRINGE IV PRN (07:15)
[2024-07-17] MEDS ORDERED: Glucagon 1 MG VIAL IM PRN (07:15)
[2024-07-17] MEDS ORDERED: Dextrose (Glucose) 15 GM (4 x 3.75 GM) Chewable TABLET PACK PO PRN (07:15)
[2024-07-17 07:18] LABS: HEMOGLOBIN 9.4 g/dl (12.5-16.0); MEAN CORPUSCULAR HEMOGLOBIN 30 pg (27-31)
[2024-07-17 08:00] LABS: INR 2.1 (0.8-3.0); PROTHROMBIN TIME 22.5 SECONDS (9.7-12.8)
--- NOTE | 2024-07-17 08:36 | NUR ---
Pt reports having 5 episodes of loose stools starting last night. Watery, brown with streaks of red when wiping.
[2024-07-17] MEDS ORDERED: amLODIPine 10 MG TAB PO SCH (09:00)
[2024-07-17] MEDS ORDERED: levETIRAcetam 500 MG TAB PO SCH (09:00)
[2024-07-17] MEDS ORDERED: Sertraline 100 MG TAB PO SCH (09:00)
[2024-07-17 10:59] LABS: CLOSTRIDIUM DIFF A/B NEG
--- NOTE | 2024-07-17 11:44 | NUR ---
D: [employer] W[employer] Consultant stopped by room on rounds. A: Pt was resting and content. Pt has no needs right now. P: [employer] Consultant informed pt that if she needed anything to let her nurse know. [employer] Consultant will follow up as needed.
[2024-07-17] MEDS ORDERED: hydrALAZINE 25 MG TAB PO PRN (11:45)
--- NOTE | 2024-07-17 11:58 | NUR ---
JACK met with patient to complete initial assessment for discharge planning. Patient is listed as uninsured. JACK contacted Financial counselor Pablo to complete FAA with patient. Patient verified that she lives in [place] with her Maryana ([phone]). Patient does not have DPOA completed and chooses not to complete one at this time. Patient sees Reji PLUNKETT as here PCP and uses [facility] pharmacy. Patient reports that she uses a rollator, FWW, wheelchair, shower chair, cane, grab bars at home. She states she has a bipap "in a box" but doesn't use it. Patient has been in ER or admitted to hospital 7 times since January 2024. Patient shared that she and are moving to [place] for work next week. They are scheduled to leave [place] on Sunday to drive to [place]. Patient states "I have to leave on Sunday" related to hospitalization. Patient does not qualify for HH or SNF due to being uninsured. Patient shared that she will have Medicare starting on 07/22/24. Discharge plan: Home with
[2024-07-17] MEDS ORDERED: Loperamide 2 MG CAP PO PRN (12:30)
--- NOTE | 2024-07-17 12:30 | NUR ---
Dr. Soto aware of high blood pressures - see orders.
--- NOTE | 2024-07-17 12:54 | NUR ---
Pt sitting in chair, c/o pain to left foot. PRNs given as ordered. Multiple episodes of loose stools today, has not had one in about an hour. Ambulates in room with walker and CAM boot. Call light within reach.
[2024-07-17] MEDS ORDERED: cefTRIAXone 1 G in Water For Injection,Sterile 10 ML IV SCH (13:00)
[2024-07-18] VITALS (11 sets, daily range): BP systolic 118–194; BP diastolic 59–106; PULSE 67–86; TEMP 97.5–99.1
--- NOTE | 2024-07-18 00:35 | NUR ---
pt siiting on side of bed, alert and oriented x4. denies chest pain/discomfort and shortness of breath. IV in LF is patent, site CDI. left heel with noted skin chunk not present CDI, dry scaly heels, per pt request lotion applied. BLE with small closed abrasions and small scattered bruising to back of BLE. pt ambulating x1 with walker to bathroom and back in bed, per request and report of 8/10 pain, medication provided. upon reassesment pt denies pain and is resting in bed. fall precautions in place, call light within reach. pt has no further needs, questions or concerns at this time.
[2024-07-18 06:29] LABS: BASO % 0.5 % (0.0-2.0); EOS # 0.3 K/mm3 (0.0-0.7); EOS % 3.9 % (0.0-4.0); GRAN # 4.4 K/mm3 (1.4-6.5); GRAN % 56.8 % (42.2-75.2); LYMPH # 2.4 K/mm3 (1.2-3.4); LYMPH % 31.2 % (20.0-51.0); MEAN CELL VOLUME 92 fl (80.0-100.0); MEAN CORPUSCULAR HGB CONC 32 g/dl (33.0-37.0); MEAN PLATELET VOLUME 10.2 fl (7.4-10.4); MONO # 0.6 K/mm3 (0.1-0.6); MONO % 7.3 % (1.7-9.3); PLATELET COUNT 235 K/mm3 (130-400); REDCELL DISTRIBUTION WIDTH-CV 12.5 % (11.5-14.5)
[2024-07-18 06:30] LABS: HEMATOCRIT 28.4 % (37.0-47.0); HEMOGLOBIN 9.2 g/dl (12.5-16.0); MEAN CORPUSCULAR HEMOGLOBIN 30 pg (27-31)
[2024-07-18 06:31] LABS: INR 2.4 (0.8-3.0); PROTHROMBIN TIME 25.9 SECONDS (9.7-12.8)
[2024-07-18 06:45] LABS: CALCIUM 8.9 mg/dL (8.4-10.2); CREATININE, serum 2.25 mg/dL (0.57-1.11)
[2024-07-18] MEDS ORDERED: hydrALAZINE 25 MG TAB PO SCH (21:00)
[2024-07-19 00:10] VITALS: BP_SYST 156
[2024-07-19 03:43] VITALS: BP 177/90; PULSE 74; TEMP 98.1
[2024-07-19 04:02] VITALS: BP 184/86
[2024-07-19] MEDS ORDERED: hydrALAZINE 20 MG/ML 1 ML VIAL IV PRN (04:15)
[2024-07-19 05:31] VITALS: BP 164/82; PULSE 77; TEMP 98.4
[2024-07-19 06:11] LABS: BASO % 0.4 % (0.0-2.0); EOS # 0.3 K/mm3 (0.0-0.7); EOS % 4.7 % (0.0-4.0); GRAN # 3.6 K/mm3 (1.4-6.5); GRAN % 51.2 % (42.2-75.2); LYMPH # 2.5 K/mm3 (1.2-3.4); LYMPH % 35.5 % (20.0-51.0); MEAN CELL VOLUME 89 fl (80.0-100.0); MEAN CORPUSCULAR HGB CONC 34 g/dl (33.0-37.0); MEAN PLATELET VOLUME 9.9 fl (7.4-10.4); MONO # 0.6 K/mm3 (0.1-0.6); MONO % 7.8 % (1.7-9.3); PLATELET COUNT 233 K/mm3 (130-400); RED BLOOD COUNT 3.15 M/mm3 (4.10-5.30); REDCELL DISTRIBUTION WIDTH-CV 12.4 % (11.5-14.5)
[2024-07-19 06:20] LABS: HEMATOCRIT 27.9 % (37.0-47.0); HEMOGLOBIN 9.5 g/dl (12.5-16.0); MEAN CORPUSCULAR HEMOGLOBIN 30 pg (27-31)
[2024-07-19 06:21] LABS: INR 2.8 (0.8-3.0); PROTHROMBIN TIME 30.3 SECONDS (9.7-12.8)
[2024-07-19 06:36] LABS: CALCIUM 8.9 mg/dL (8.4-10.2); CREATININE, serum 2.18 mg/dL (0.57-1.11); POTASSIUM 4.2 mEq/L (3.5-4.5)
[2024-07-19 07:37] VITALS: BP 182/92; PULSE 78; TEMP 98.2
--- NOTE | 2024-07-19 07:49 | NUR ---
PATIENTS VOICED CONCERNS REGARDING PATIENT RECIEVING IV ZOSYN. PER PATIENTS THIS COULD BE THE CAUSE OF THE PATIETNS HTN "ZOSYN CAUSES HTN, ITS ONE OF THE SIDE EFFECTS." I INFORMED HER THIS RN WILL BRING UP HER CONCERNS DURING MORNING ROUNDS.
[2024-07-19 09:00] VITALS: BP_SYST 182
[2024-07-19] MEDS ORDERED: APRESOLINE 25MG25 MG PO (09:13)
[2024-07-19] MEDS ORDERED: AMOXICILLIN 8751 TAB PO (09:14)
--- NOTE | 2024-07-19 10:10 | NUR ---
PATIENT IV REMOVED. PATIENT ASSITED BY THIS RN TO DRESS, CAMBOOT PLACED TO L FOOT. PATIENT GIVEN DISCHARGE INSTRUCTIONS AND EDUCATION. PATIENT VOICES UNDERSTANDING OF NEW MEDICATIONS AND FOLLOW UP APT NEEDED WHEN SHE GETS TO [place], IN A WEEK. PATIENT TAKEN VIA WHEELCHAIR TO ER ENTRANCE WHERE SHE LEFT IN STABLE CONDITION WITH HER ,
== END 2024-07-19 10:37 | disposition home or self-care (01) | DRG 690 ==
LOC: COL.ER 11:05 → MEDICAL 14:04
PROVIDERS: Emergency Medicine; ADMIT Internal Medicine
DX: N39.0 Urinary tract infection, site not specified (principal); N17.9 Acute kidney failure, unspecified; E78.5 Hyperlipidemia, unspecified; Z79.4 Long term (current) use of insulin; E11.40 Type 2 diabetes mellitus with diabetic neuropathy, unspecified; F32.A Depression, unspecified; S92.323A Displaced fracture of second metatarsal bone, unspecified foot, initial encounter for closed fracture; S92.353A Displaced fracture of fifth metatarsal bone, unspecified foot, initial encounter for closed fracture; R56.9 Unspecified convulsions; I12.9 Hypertensive chronic kidney disease with stage 1 through stage 4 chronic kidney disease, or unspecified chronic kidney disease; N18.31 Chronic kidney disease, stage 3a
CPT/HCPCS: A9284; J0360; J0696; J1815; J2543; J7030; J7120